=== PATIENT | female | born 1980 | race African-American/Black ===

== ENCOUNTER 2021-10-14 12:01 | Emergency (ER) | payer OTHER ==
[~2021-10-14] VITALS: Ht 177.8 cm; Wt 98.0 kg
[2021-10-14 12:12] VITALS: BP 129/77
[2021-10-14 13:37] LABS: CLARITY URINE CLEAR (CLEAR); COLOR URINE YELLOW (YELLOW); KETONES URINE NEGATIVE (NEGATIVE); LEUKOCYTE ESTERASE URINE NEGATIVE (NEGATIVE); NITRITE URINE NEGATIVE (NEGATIVE); OCCULT BLOOD URINE 2+ (NEGATIVE); PROTEIN URINE NEGATIVE (NEGATIVE); SPECIFIC GRAVITY URINE 1.009 (1.005-1.030)
[2021-10-14 14:44] LABS: EOSINOPHILS % 3.7 % (0.0-5.0); HEMATOCRIT. 35.4 % (36.0-48.0); HEMOGLOBIN. 11.6 g/dL (12.0-16.0); LYMPHOCYTES % 35.8 % (20.0-50.0); MEAN CORPUSCULAR HEMOGLOBIN 28.3 pg (28.0-32.0); MEAN CORPUSCULAR VOLUME 86.4 fL (81.0-99.0); MEAN PLATELET VOLUME 8.7 fl (7.4-10.4); MONOCYTES % 8.3 % (2.0-8.0); NEUTROPHILS % 51.2 % (40.0-76.0); PLATELET 303 x1000/uL (130-400); RED BLOOD CELL COUNT 4.09 mill/uL (4.2-5.4)
[2021-10-14 14:49] LABS: CHLORIDE 107 mEq/L (98-107)
== END 2021-10-14 15:54 | disposition home or self-care (01) ==
LOC: ER 12:01
DX: R42 Dizziness and giddiness (principal); Z98.890 Other specified postprocedural states
CPT/HCPCS: 36415; 71045; 80048; 81003; 84484; 85025; 93005; 99285